=== PATIENT | female | born 1980 | race Caucasian/White ===

== ENCOUNTER 2018-01-27 19:34 | Emergency (ER) | payer SELFPAY ==
[2018-01-27] MEDS ORDERED: LORazepam 0.5 MG TABLET PO STA (20:17)
--- NOTE | 2018-01-27 20:23 | ED Physician Documentation ---
History of Present Illness - Stated complaint Stated Complaint: ALOC - Chief complaint Chief Complaint: General - History obtained from History obtained from: Patient, Family - History of Present Illness Timing: Today (37-year-old woman with history of alcoholism. Had a single alcohol withdrawal seizure a few months ago. She presents having drank her last drank about 12 hours ago. For the last 3 days she has been binging with one bottle of wine and a 6 pack of beer every day. She feels shaky and anxious and has a mild headache. No hallucinations. No other drug issues.) Review of Systems Ten Systems: 10 systems reviewed and negative Constitutional: denies: Fever, Chills Cardiac: denies: Chest pain / pressure, Palpitations Respiratory: denies: Dyspnea, Cough PD PAST MEDICAL HISTORY - Present Medications Home Medications: Ambulatory Orders Medication Instructions Recorded Confirmed Lorazepam [Ativan] 1 mg PO TID PRN #10 tablet 01/27/18 - Allergies Allergies/Adverse Reactions: Allergies Allergy/AdvReac Type Severity Reaction Status Date / Time No Known Drug Allergies Allergy Verified 01/27/18 19:41 PD ED PE NORMAL - Vitals Vital signs reviewed: Yes - General General: Alert and oriented X 3, No acute distress - HEENT HEENT: PERRL - Cardiac Cardiac: RRR, No murmur - Respiratory Respiratory: No respiratory distress, Clear bilaterally - Abdomen Abdomen: Normal bowel sounds, Soft, Non tender - Back Back: No CVA TTP, No spinal TTP - Derm Derm: Normal color, Warm and dry - Extremities Extremities: No edema, No calf tenderness / cord - Neuro Neuro: Alert and oriented X 3, Other (No overt tremulousness) Eye Opening: Spontaneous Motor: Obeys Commands Verbal: Oriented GCS Score: 15 Results - Vitals Vitals: Vital Signs - 24 hr 01/27/18 19:39 Temperature 36.8 C Heart Rate 116 H Respiratory 19 Rate Blood Pressure 120/84 H O2 Saturation 98 Oxygen O2 Source Room air PD MEDICAL DECISION MAKING - ED course ED course: 37-year-old woman presents with complaints of alcohol withdrawal, no evidence of serious withdrawal at this juncture, probably because she is still drunk based on her labs. She was offered inpatient detox which she declined. The father will take care of her, they are encouraged to return if they reconsider inpatient detox. - Sepsis Event Vital Signs: Vital Signs - 24 hr 01/27/18 19:39 Temperature 36.8 C Heart Rate 116 H Respiratory 19 Rate Blood Pressure 120/84 H O2 Saturation 98 Oxygen O2 Source Room air Departure - Departure Disposition: 01 Home, Self Care Clinical Impression: Alcohol abuse Condition: Good Record reviewed to determine appropriate education?: Yes Instructions: ED Alcohol Intoxication Prescriptions: Lorazepam [Ativan] 1 mg PO TID PRN #10 tablet PRN Reason: Anxiety Comments: Call your doctor to arrange a follow-up appointment, make the next available appointment. In the interim, return anytime if worse or if new symptoms develop.
[2018-01-27 20:24] LABS: BASOPHILS # (AUTO) 0.1 10^3/uL (0.0-0.1); EOSINOPHILS % (AUTO) 0.4 %; HGB - HEMOGLOBIN 14.8 g/dL (12.0-16.0); LYMPHOCYTES # (AUTO) 3.7 10^3/uL (1.5-3.5); LYMPHOCYTES % (AUTO) 34.1 %; MEAN CORPUSCULAR HEMOGLOBIN 31.3 pg (27.0-31.0); MEAN CORPUSCULAR HGB CONC 33.5 g/dL (32.0-36.0); MEAN CORPUSCULAR VOLUME 93.5 fL (81.0-99.0); MEAN PLATELET VOLUME 7.9 fL (7.9-10.8); MONOCYTES # (AUTO) 0.4 10^3/uL (0.0-1.0); MONOCYTES % (AUTO) 3.7 %; NEUTROPHILS # (AUTO) 6.6 10^3/uL (1.5-6.6); NEUTROPHILS % (AUTO) 60.8 %; PLT - PLATELET COUNT 255 10^3/uL (130-450); RED BLOOD COUNT 4.73 10^6/uL (4.20-5.40); RED CELL DISTRIBUTION WIDTH 13.4 % (12.0-15.0); WHITE BLOOD COUNT 10.9 x10^3/uL (4.8-10.8)
[2018-01-27 20:38] LABS: ALBUMIN 4.2 g/dL (3.2-5.5); ALBUMIN/GLOBULIN RATIO 1.3 (1.0-2.2); BILIRUBIN,TOTAL 0.7 mg/dL (0.2-1.0); CALCIUM 8.5 mg/dL (8.5-10.3); CREATININE 0.7 mg/dL (0.4-1.0); TOTAL PROTEIN 7.5 g/dL (6.7-8.2)
[2018-01-27 21:14] VITALS: BP 111/64
== END 2018-01-27 21:17 | disposition home or self-care (01) ==
LOC: ED 19:34
DX: F10.229 Alcohol dependence with intoxication, unspecified (principal); F41.9 Anxiety disorder, unspecified
CPT/HCPCS: 36415; 80053; 80320; 83690; 85025; 99283; A9270

== ENCOUNTER 2018-12-12 23:03 | Emergency (ER) | payer MEDICAID ==
[2018-12-13 00:03] LABS: BASOPHILS # (AUTO) 0.1 10^3/uL (0.0-0.1); BASOPHILS % (AUTO) 0.5 %; EOSINOPHILS # (AUTO) 0.1 10^3/uL (0.0-0.7); EOSINOPHILS % (AUTO) 0.5 %; HGB - HEMOGLOBIN 13.1 g/dL (12.0-16.0); LYMPHOCYTES # (AUTO) 3.7 10^3/uL (1.5-3.5); MEAN CORPUSCULAR HEMOGLOBIN 29.6 pg (27.0-31.0); MEAN CORPUSCULAR VOLUME 89.8 fL (81.0-99.0); MEAN PLATELET VOLUME 9.7 fL (7.9-10.8); MONOCYTES # (AUTO) 0.7 10^3/uL (0.0-1.0); NEUTROPHILS # (AUTO) 10.1 10^3/uL (1.5-6.6); NEUTROPHILS % (AUTO) 68.4 %; PLT - PLATELET COUNT 198 10^3/uL (130-450); RED BLOOD COUNT 4.42 10^6/uL (4.20-5.40); RED CELL DISTRIBUTION WIDTH 13.8 % (12.0-15.0); WHITE BLOOD COUNT 14.7 x10^3/uL (4.8-10.8)
[2018-12-13 00:05] LABS: MUDS CUTOFF CONCENTRATIONS CUTOFF CONC BELOW:
[2018-12-13 00:15] LABS: ALBUMIN/GLOBULIN RATIO 1.3 (1.0-2.2); BILIRUBIN,TOTAL 0.6 mg/dL (0.2-1.0); CALCIUM 8.7 mg/dL (8.5-10.3); TOTAL PROTEIN 7.2 g/dL (6.7-8.2)
[2018-12-13] MEDS ORDERED: FOLIC ACID INJ 1 MG, THIAMINE INJ 100 MG, MAGNESIUM SULFATE 2 GM, MULTIVITAMIN 10 ML in... IV STA ×5 (00:21)
[2018-12-13 00:24] LABS: BILIRUBIN,URINE NEGATIVE (NEGATIVE); GLUCOSE, URINE (UA) NEGATIVE (NEGATIVE); KETONES,URINE (UA) NEGATIVE (NEGATIVE); LEUKOCYTE ESTERASE, URINE NEGATIVE (NEGATIVE); NITRITE,URINE NEGATIVE (NEGATIVE); OCCULT BLOOD,URINE SMALL (NEGATIVE); PROTEIN,URINE NEGATIVE (NEGATIVE); UROBILINOGEN,URINE 0.2 (NORMAL) E.U./dL (NORMAL)
--- NOTE | 2018-12-13 00:24 | ED Physician Documentation ---
History of Present Illness - Stated complaint Stated Complaint: WITHDRAWAL/ETOH - Chief complaint Chief Complaint: General - History obtained from History obtained from: Patient - History of Present Illness Timing: Today - Additonal information Additional information: 38-year-old alcoholic female with a prior history of alcohol withdrawal seizure has been sober for 9 months and more than 10 days ago she started drinking again she is beginning to feel ill and she wants to stop drinking. She is reluctant to discuss why she started drinking again. She has been in treatment twice with detox only she has not been in inpatient alcohol treatment otherwise.She is brought here today by her father who she states has been supportive. She has not started vomiting but states that she will begin to vomit. Review of Systems Constitutional: denies: Fever Eyes: denies: Decreased vision Ears: denies: Ear pain Nose: denies: Congestion Throat: denies: Sore throat Cardiac: denies: Chest pain / pressure, Palpitations Respiratory: denies: Dyspnea, Cough GI: reports: Abdominal Pain, Nausea. denies: Vomiting : denies: Dysuria, Frequency Skin: denies: Rash, Lesions Musculoskeletal: denies: Neck pain, Back pain Neurologic: denies: Generalized weakness, Focal weakness, Numbness PD PAST MEDICAL HISTORY - Past Medical History Past Medical History: Yes Cardiovascular: Valve disorder Respiratory: None Neuro: None Endocrine/Autoimmune: None GI: None PERSONAL DEVELOPMENT COACH: None : None HEENT: None Psych: Depression, Anxiety, Panic attacks, Post traumatic stress disorder, Other Musculoskeletal: None Derm: None Other Past Medical History: Manic depression disorder. - Past Surgical History Past Surgical History: Yes - Present Medications Home Medications: Ambulatory Orders Medication Instructions Recorded Confirmed Lorazepam [Ativan] 1 mg PO TID PRN #10 tablet 01/27/18 LORazepam [Ativan] 1 mg PO Q6H PRN #25 tablet 12/13/18 Ondansetron Odt [Zofran] 4 mg TL Q6H PRN #20 tablet 12/13/18 cloNIDine [Catapres] 0.1 mg PO BID #15 tablet 12/13/18 - Allergies Allergies/Adverse Reactions: Allergies Allergy/AdvReac Type Severity Reaction Status Date / Time No Known Drug Allergies Allergy Verified 01/27/18 19:41 - Social History Does the pt smoke?: No Smoking Status: Current some day smoker Does the pt drink ETOH?: Yes Does the pt have substance abuse?: No - Immunizations Immunizations are current?: Yes - POLST Patient has POLST: No PD ED PE NORMAL - Vitals Vital signs reviewed: Yes (tachy ) - General General: Alert and oriented X 3, Well developed/nourished, Other (teart eyed and not wanting to repeat her story .) - HEENT HEENT: Atraumatic, PERRL, EOMI, Other (dry mucous membranes ) - Neck Neck: Supple, no meningeal sign, No bony TTP - Cardiac Cardiac: No murmur, Other (tachy to 110) - Respiratory Respiratory: No respiratory distress, Clear bilaterally - Abdomen Abdomen: Normal bowel sounds, Soft, Non tender, Non distended, No organomegaly - Back Back: No CVA TTP, No spinal TTP - Derm Derm: Normal color, Warm and dry, No rash - Extremities Extremities: No deformity, Normal ROM s pain, No edema, No calf tenderness / cord - Neuro Neuro: Alert and oriented X 3, 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, No motor deficit, No sensory deficit, Normal speech Eye Opening: Spontaneous Motor: Obeys Commands Verbal: Oriented GCS Score: 15 - Psych Psych: Other (mood is sullen and the affect is flat) Results - Vitals Vitals: Vital Signs - 24 hr 12/13/18 12/13/18 12/13/18 04:00 06:30 08:24 Heart Rate 80 70 72 Respiratory 16 Rate Blood Pressure 104/61 110/68 104/60 O2 Saturation 98 95 96 12/13/18 12/13/18 11:22 11:24 Heart Rate 82 86 Respiratory 18 18 Rate Blood Pressure 111/64 111/86 H O2 Saturation 99 98 Oxygen O2 Source Room air - Labs Labs: Laboratory Tests 12/12/18 12/12/18 12/12/18 23:50 23:57 23:57 WBC 14.7 H RBC 4.42 Hgb 13.1 Hct 39.7 MCV 89.8 MCH 29.6 MCHC 33.0 RDW 13.8 Plt Count 198 MPV 9.7 Neut # (Auto) 10.1 H Lymph # (Auto) 3.7 H [place] # (Auto) 0.7 Eos # (Auto) 0.1 Baso # (Auto) 0.1 Absolute Nucleated RBC 0.00 Nucleated RBC % 0.0 Sodium 143 Potassium 3.6 Chloride 103 Carbon Dioxide 26 Anion Gap 14.0 H BUN 11 Creatinine 1.0 Estimated GFR (MDRD) 61 L Glucose 103 H Calcium 8.7 Total Bilirubin 0.6 AST 42 ALT 41 Alkaline Phosphatase 52 Total Protein 7.2 Albumin 4.0 Globulin 3.2 Albumin/Globulin Ratio 1.3 Lipase 112 H Urine Color YELLOW Urine Clarity CLEAR Urine pH 6.0 Ur Specific [place] <=1.005 Urine Protein NEGATIVE Urine Glucose (UA) NEGATIVE Urine Ketones NEGATIVE Urine Occult Blood SMALL H Urine Nitrite NEGATIVE Urine Bilirubin NEGATIVE Urine Urobilinogen 0.2 (NORMAL) Ur Leukocyte Esterase NEGATIVE Urine RBC 6-10 H Urine WBC 0-3 Ur Squamous Epith Cells MOD Squamous H Urine Bacteria None Seen Ur Microscopic Review INDICATED Urine Culture Comments NOT INDICATED Urine Opiates Screen NEGATIVE Ur Oxycodone Screen NEGATIVE Urine Methadone Screen NEGATIVE Ur Propoxyphene Screen NEGATIVE Ur Barbiturates Screen NEGATIVE Ur Tricyclics Screen NEGATIVE Ur Phencyclidine Scrn NEGATIVE Ur Amphetamine Screen NEGATIVE U Methamphetamines Scrn NEGATIVE U Benzodiazepines Scrn POSITIVE H Urine Cocaine Screen NEGATIVE U Cannabinoids Screen NEGATIVE Ethyl Alcohol 336.1 12/13/18 09:14 WBC RBC Hgb Hct MCV MCH MCHC RDW Plt Count MPV Neut # (Auto) Lymph # (Auto) [place] # (Auto) Eos # (Auto) Baso # (Auto) Absolute Nucleated RBC Nucleated RBC % Sodium Potassium Chloride Carbon Dioxide Anion Gap BUN Creatinine Estimated GFR (MDRD) Glucose Calcium Total Bilirubin AST ALT Alkaline Phosphatase Total Protein Albumin Globulin Albumin/Globulin Ratio Lipase Urine Color Urine Clarity Urine pH Ur Specific [place] Urine Protein Urine Glucose (UA) Urine Ketones Urine Occult Blood Urine Nitrite Urine Bilirubin Urine Urobilinogen Ur Leukocyte Esterase Urine RBC Urine WBC Ur Squamous Epith Cells Urine Bacteria Ur Microscopic Review Urine Culture Comments Urine Opiates Screen Ur Oxycodone Screen Urine Methadone Screen Ur Propoxyphene Screen Ur Barbiturates Screen Ur Tricyclics Screen Ur Phencyclidine Scrn Ur Amphetamine Screen U Methamphetamines Scrn U Benzodiazepines Scrn Urine Cocaine Screen U Cannabinoids Screen Ethyl Alcohol 131.1 PD MEDICAL DECISION MAKING - ED course Complexity details: reviewed old records, reviewed results, re-evaluated patient, considered differential, d/w patient ED course: 38-year-old alcoholic female with a prior history of alcohol withdrawal seizure has relapsed and is requesting assistance with alcohol withdrawal. Social wo rker is not available this evening and the patient is administered a banana bag intravenously we will keep the patient in the emergency department for further evaluation by mental health social worker in a.m. She is currently intoxicated and has not started the withdrawal symptoms. Patient was seen by mental health social worker she was evaluated by Dr. Montilla and medications were prescribed for withdrawal symptoms. The patient is given resources for outpatient detox facility. Departure - Departure Disposition: 01 Home, Self Care Clinical Impression: Alcoholism, Depressed affect Alcohol intoxication Qualifiers: Complication of substance-induced condition: uncomplicated Qualified Code(s): F10.920 - Alcohol use, unspecified with intoxication, uncomplicated Condition: Stable Instructions: ED Withdrawal Alcohol Prescriptions: cloNIDine [Catapres] 0.1 mg PO BID #15 tablet LORazepam [Ativan] 1 mg PO Q6H PRN #25 tablet PRN Reason: Alcohol Withdrawal Ondansetron Odt [Zofran] 4 mg TL Q6H PRN #20 tablet PRN Reason: Nausea / Vomiting Comments: Frequent fluids at home. No alcohol. Use ondansetron if needed for nausea. Clonidine twice daily to help with withdrawal symptoms for the next week. Add Ativan if needed for withdrawal symptoms and taper down the frequency and intervals of it over the next week or so. Discharge Date/Time: 12/13/18 13:52
[2018-12-13 00:25] LABS: CLARITY,URINE CLEAR (CLEAR)
[2018-12-13 00:31] LABS: BACTERIA,URINE None Seen /HPF (None Seen); SQUAMOUS EPITHELIAL CELL,UR MOD Squamous (<= Few)
[2018-12-13 00:43] LABS: AMPHETAMINE SCREEN,URINE NEGATIVE (NEGATIVE); BENZODIAZEPINES SCREEN, URINE POSITIVE (NEGATIVE); COCAINE SCREEN URINE NEGATIVE (NEGATIVE); METHADONE SCREEN, URINE NEGATIVE (NEGATIVE); METHAMPHETAMINES SCREEN, URINE NEGATIVE (NEGATIVE); OPIATE SCREEN, URINE NEGATIVE (NEGATIVE); OXYCODONE SCREEN, URINE NEGATIVE (NEGATIVE); PROPOXYPHENE SCREEN, URINE NEGATIVE (NEGATIVE); TRICYCLIC ANTIDEPRESSANT,URINE NEGATIVE (NEGATIVE)
[2018-12-13] MEDS ORDERED: THIAMINE 100 MG/1 ML 2 ML MDV ONE (00:48)
[2018-12-13 11:25] VITALS: BP 111/86
[2018-12-13] MEDS ORDERED: ONDANSETRON 4 MG/2 ML VIAL IVP STA ×2 (11:48→12:57)
[2018-12-13] MEDS ORDERED: LORazepam 2 MG/ML VIAL IVP STA ×2 (11:49→12:57)
--- NOTE | 2018-12-13 13:41 | ED Physician Documentation ---
ED Addendum - Addendum Addendum: 12/13/18 13:39 Social work saw the patient and worked on placement in a detox facility for her. One was available and the patient was offered admission to detox today. However during that time she said she would now decide to prefer going home. She has children visiting and would like to be home for the next few days. She was given information then for the programs for her to call herself and also other rehab programs. She states she does get withdrawal symptoms in the past and we discussed medications to use for that and I will write prescriptions. Final diagnoses: 1. alcohol intoxication #2 alcoholism #3 depression Disposition: discharged home stable.
== END 2018-12-13 13:52 | disposition home or self-care (01) ==
LOC: ED 23:03
DX: F10.229 Alcohol dependence with intoxication, unspecified (principal); F32.9 Major depressive disorder, single episode, unspecified; F17.200 Nicotine dependence, unspecified, uncomplicated
CPT/HCPCS: 36415; 80053; 80306; 80320; 81001; 83690; 85025; 96374; 96375; 99283; 99284; J2060; J3411; 81003; 87086

== ENCOUNTER 2018-12-18 14:45 | Emergency (ER) | payer MEDICAID ==
[2018-12-18] MEDS ORDERED: ONDANSETRON ODT 4 MG TABLET TL STA (15:25)
[2018-12-18] MEDS ORDERED: LORazepam 1 MG TABLET PO STA (15:25)
[2018-12-18] MEDS ORDERED: IBUPROFEN 600 MG TABLET PO STA (15:25)
--- NOTE | 2018-12-18 15:27 | ED Physician Documentation ---
PD HPI ALTERED MENTAL STATUS - Stated complaint Stated Complaint: REFILL MED - Chief complaint Chief Complaint: General - History obtained from History obtained from: Patient - History of Present Illness Timing - onset: How many weeks ago (1) Timing - duration: Weeks (1) Timing - details: Gradual onset, Waxing and waning (She was here 6 days ago for alcohol withdrawal and alcoholism. She has wanted to stop drinking. She has had a depressed affect but no suicidal ideation. She was discharged with prescriptions for Ativan and Zofran and clonidine. She states the medicines were helping moderately well but not entirely and her prescription is out. She is wondering if there is another medicine to work differently or better. She has been taking the Ativan 1 mg every 6 hours and states it was not really helping fully with the withdrawal. She also has had trouble sleeping and is still having some depressed mood. She is here for refill on the medications. She said she was not drinking regularly in the last 6 days. She had one glass of wine 2 days ago to supplement help with the withdrawal but only that amount.) Quality / character: Agitated (anxious and tremors, poor sleep, some nausea.) Associated symptoms: No: Fever, Headache Contributing factors: Substance abuse (alcoholism and is trying to get sober again. Still having withdrawal symptoms, though tapering compared to a week ago). No: Intoxicated [place] status: Alert and oriented X 3, Ambulatory Similar symptoms before: Diagnosis (alcohol withdrawal) Recently seen: Emergency Dept (6 days ago for similar) Review of Systems Constitutional: reports: Myalgias. denies: Fever, Chills Nose: denies: Rhinorrhea / runny nose, Congestion Throat: denies: Sore throat Respiratory: denies: Cough GI: reports: Nausea. denies: Abdominal Pain, Vomiting, Diarrhea Musculoskeletal: reports: Back pain (muscular stiffness and aching in lower to mid back, worse with bending and lifting.) Neurologic: denies: Focal weakness, Numbness Psychiatric: reports: Depressed, Anxiety (related to the alcohol withdrawal), Insomnia. denies: Suicidal, Hallucinations, Delusions PD PAST MEDICAL HISTORY - Past Medical History Cardiovascular: Valve disorder Respiratory: None Neuro: None Endocrine/Autoimmune: None GI: None MANAGEMENT PROFESSIONAL: None : None HEENT: None Psych: Depression, Anxiety, Panic attacks, Post traumatic stress disorder, Other Musculoskeletal: None Derm: None - Past Surgical History Past Surgical History: Yes - Present Medications Home Medications: Ambulatory Orders Medication Instructions Recorded Confirmed Lorazepam [Ativan] 1 mg PO TID PRN #10 tablet 01/27/18 LORazepam [Ativan] 1 mg PO Q6H PRN #25 tablet 12/13/18 Ondansetron Odt [Zofran] 4 mg TL Q6H PRN #20 tablet 12/13/18 cloNIDine [Catapres] 0.1 mg PO BID #15 tablet 12/13/18 Methocarbamol [Robaxin] 500 mg PO TID #20 tablet 12/18/18 Ondansetron Odt [Zofran] 4 mg TL Q6H PRN #15 tablet 12/18/18 Trazodone HCl 50 mg PO QPM #10 tablet 12/18/18 chlordiazePOXIDE [Librium] 25 - 50 mg PO Q6H PRN #30 capsule 12/18/18 dexAMETHasone [Decadron] 4 mg PO DAILY #7 tablet 12/18/18 - Allergies Allergies/Adverse Reactions: Allergies Allergy/AdvReac Type Severity Reaction Status Date / Time tetracycline Allergy Unknown Verified 12/18/18 14:51 - Social History Does the pt smoke?: No Smoking Status: Current some day smoker Does the pt drink ETOH?: Yes Does the pt have substance abuse?: No - Immunizations Immunizations are current?: Yes - POLST Patient has POLST: No PD ED PE NORMAL - Vitals Vital signs reviewed: Yes - General General: Alert and oriented X 3, Well developed/nourished - HEENT HEENT: Pharynx benign - Neck Neck: Supple, no meningeal sign, No adenopathy - Cardiac Cardiac: RRR, No murmur - Respiratory Respiratory: Clear bilaterally - Abdomen Abdomen: Soft, Non tender - Back Back: No spinal TTP, Other (some tender in muscles at thoracolumbar area) - Derm Derm: Normal color, Warm and dry - Neuro Neuro: Alert and oriented X 3, No motor deficit, Normal speech, Other (She has some mild tremoring in both hands. She is not tachycardic and her blood pressure is good. She is not nauseated. The degree of withdrawals seems mild enough to treat with oral medications at this time.) Results - Vitals Vitals: Vital Signs - 24 hr 12/18/18 12/18/18 14:51 15:39 Temperature 36.9 C 36.8 C Heart Rate 78 79 Respiratory 16 12 Rate Blood Pressure 101/60 118/76 O2 Saturation 100 96 Oxygen O2 Source Room air PD MEDICAL DECISION MAKING - ED course Complexity details: reviewed old records, considered differential (She is having still some alcohol withdrawal. She had been subtherapeutic with the dose previously prescribed. She would like to try different medicine as well. I will prescribe Librium and rather than Ativan as it does have a little longer half-life. She can use 1-2 every 6 hours with the idea that I discussed with her of decreasing the dose and stretch in the interval as tolerated over the next several days to week. She should not drink any alcohol. For her back pain, which sounds muscular, we can do anti-inflammatories and muscle relaxant. For sleep and mood together we could try a low-dose trazodone nightly for 7 to 10 days. She was not interested in SSRIs as she does not think she will want a medium more longer term antidepressant. I offered social work to talk with her about detox placement today. The patient states she would prefer to go back home and do treatment there and has done that in the past. She just feels she needed some more medicines to treat the remainder of the withdrawal..), d/w patient Departure - Departure Disposition: 01 Home, Self Care Clinical Impression: Alcohol withdrawal Qualifiers: Complication of substance-induced condition: uncomplicated Qualified Code(s): F10.230 - Alcohol dependence with withdrawal, uncomplicated Condition: Stable Record reviewed to determine appropriate education?: Yes Instructions: ED Withdrawal Alcohol Prescriptions: chlordiazePOXIDE [Librium] 25 - 50 mg PO Q6H PRN #30 capsule PRN Reason: Alcohol Withdrawal dexAMETHasone [Decadron] 4 mg PO DAILY #7 tablet Methocarbamol [Robaxin] 500 mg PO TID #20 tablet Ondansetron Odt [Zofran] 4 mg TL Q6H PRN #15 tablet PRN Reason: Nausea / Vomiting Trazodone HCl 50 mg PO QPM #10 tablet Comments: Use the Librium 1-2 every 6 hours as needed for withdrawal symptoms and taper the dose and interval as you are able over the next 7 to 10 days. Ondansetron if needed for nausea. Trazodone at night to just before bedtime to help with mood and sleep and take this daily for the next 10 days. For your back, use Decadron anti-inflammatory daily for the next week and Robaxin muscle relaxant for stiffness. Add Tylenol or ibuprofen if needed for pains. Follow-up with the detox and alcohol treatment programs in the information that was given to you on the prior visit. Call them to see if they have space's available for alcohol treatment.
[2018-12-18 15:39] VITALS: BP 118/76
== END 2018-12-18 15:42 | disposition home or self-care (01) ==
LOC: ED 14:45
DX: F10.230 Alcohol dependence with withdrawal, uncomplicated (principal); F32.9 Major depressive disorder, single episode, unspecified; G47.00 Insomnia, unspecified; M54.9 Dorsalgia, unspecified; Z76.0 Encounter for issue of repeat prescription; F17.200 Nicotine dependence, unspecified, uncomplicated
CPT/HCPCS: 99283; 99284; A9270; J8499; Q0162